=== PATIENT | male | born 1975 | race Two or more races ===

== ENCOUNTER 2025-06-18 18:03 | Emergency (ER) | payer MEDICAID ==
[~2025-06-18] VITALS: Ht 185.4 cm; Wt 98.3 kg
--- NOTE | 2025-06-18 18:12 | ELECTROCARDIOGRAPH REPORT ---
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 Fermin Cruz Measurements Intervals [place] Rate: 72 P: 60 TX: 153 QRS: 35 QRSD: 87 T: 47 QT: 400 QTc: 438 Interpretive Statements Sinus rhythm Ventricular trigeminy Low voltage, precordial leads Electronically Signed On 06-18-2025 18:29:[address] Fermin Cruz Please click the below link to view image of tracing.
[2025-06-18 18:30] LABS: MEAN PLATELET VOLUME 8.7 FL (7.4-10.4); RED CELL DISTRIBUTION WIDTH 13.6 % (11.5-14.5)
[2025-06-18 18:52] LABS: CREATININE 1.28 MG/DL (0.60-1.10); PRO BRAIN NATRIURETIC PEPTIDE < 30 PG/ML (0-125); TOTAL CARBON DIOXIDE 26.7 MMOL/L (24-32); eCRCL 78 ML/MIN; eGFR 59 ML/MIN
--- NOTE | 2025-06-18 18:56 | RADIOLOGY REPORT ---
CHEST RADIOGRAPH REASON FOR EXAM: Chest pain COMPARISON: None TECHNIQUE: One view of the chest is provided FINDINGS: The cardiomediastinal silhouette is within normal limits for technique. There is no focal airspace disease. There is no significant pleural effusion. No acute bony abnormality is identified. IMPRESSION: No radiographic evidence of acute cardiopulmonary process.
--- NOTE | 2025-06-18 19:13 | Physician Documentation ---
History of Present Illness ~ Chief Complaint: Palpitations Stated Complaint: HEART PALPITATIONS/SOB Time Seen by MD: 18:47 Primary Medical Doctor: Tash Tyler Mode of Arrival: POV HPI 49-year-old male since to the ED with a complaint of recurrent palpitations. States he does not have any cardiac history. He adds that when he has palpitations he does not have a accompanying shortness a breath or chest pain states that when he exercises he does not notice having any palpitations. Does report high levels of stress high levels of caffeine daily but does exercise regularly. Denies any alcohol use that is excessive Day of Onset: Jun 18, 2025 Medication Reconciliation Allergies: Uncoded Allergies: SHELL FISH (Allergy, Unknown, 06/18/25) Review of Systems All Other Systems at this time: Reviewed and Negative ROS As stated above in the HPI, otherwise all systems are reviewed and negative. Physical Exam Vital Signs: Temperature: 97.1, Source: Temporal, Heart Rate: 66, Respiratory Rate: 13, BP: 146/72, Pulse Oximetry: 99, Weight: 98.300 Oxygen Flow Rate: 0 Physical Exam General: Alert, no apparent distress. Respiratory: Lungs clear, no respiratory distress. Cardiovascular: Regular rate and rhythm, no murmurs. Gastrointestinal: Soft, nontender, nondistended. Bowels sounds present. Neurologic: Oriented x4. Psychiatric: Normal mood and affect. Skin: Normal color, warm and dry. No edema, no ecchymosis. Progress Results/Orders Results/Orders Vital Signs 06/18/25 06/18/25 18:06 18:37 Temp 97.1 Pulse 66 Resp 18 13 B/P (MAP) 146/72 Pulse Ox 99 O2 Flow Rate 0 Laboratory Tests Test 06/18/25 18:22 White Blood Count 9.2 Red Blood Count 5.31 Hemoglobin 16.2 Hematocrit 46.4 Mean Corpuscular Volume 87.4 Mean Corpuscular Hemoglobin 30.5 Mean Corpuscular Hemoglobin Concent 34.9 Red Cell Distribution Width 13.6 Platelet Count 210 Mean Platelet Volume 8.7 Neutrophils (%) (Auto) 47.9 Lymphocytes (%) (Auto) 40.3 Monocytes (%) (Auto) 8.9 Eosinophils (%) (Auto) 2.4 Basophils (%) (Auto) 0.5 Neutrophils # (Auto) 4.4 Lymphocytes # (Auto) 3.7 Monocytes # (Auto) 0.8 Eosinophils # (Auto) 0.2 Basophils # (Auto) 0.0 CBC Comment Sodium Level 140 Potassium Level 3.9 Chloride Level 106 Carbon Dioxide Level 26.7 Anion Gap 7 L Blood Urea Nitrogen 22 H Creatinine 1.28 H Estimated GFR/1.73 m2 59 BUN/Creatinine Ratio 17.2 Glucose Level 135 H Calcium Level 8.7 Troponin I High Sensitivity 5 Pro-B-Type Natriuretic Peptide < 30 Albumin 4.0 Chemistry Comments Medical Decision Making Additional information obtaine: old records Findings The patient presents with a all the clinical into the dictations for benign PV Cs. I explained to him that reducing caffeine intake and improving his sleep and trying to reduce his stress level should help reduce the occurrence of PVCs however he can follow up with the primary care to obtain a referral to see Cardiology for potential evaluation and likely Holter monitor placement Patient's x-ray was unremarkable as were his laboratories. Per my interpretat ion his EKG was notable for multiple PVCs which were not consecutive. I do not see any reason to pursue further evaluation or ongoing troponins as he does not present currently symptomatic Differential Dx:Considerations: Include: angina / NC, atrial dysrhythmia, atrial fibrillation, atrial flutter, MAT, PACs, PSVT, sinus tachycardia, WPW, 1st degree AV block, 2nd degree AVB-type 1, 2nd degree AVB-type 2, 3rd degree AV block, PVCs, torsades de pointes, ventricular fibrillation, ventricular tachycardia, other Differential Dx:Considerations: Include anxiety/panic attack, Include digoxin toxicity, Include electrolyte disorder, Include heart failure, Include hyperthyroidism, Include hyperventilation, Include hypoxia, Include pacemaker malfunction, Include pulmonary embolus, Include renal failure, Include other Departure Disposition: 01 HOME / SELF CARE / HOMELESS Impression: Primary Impression: Palpitations Condition: Stable Discharge Instructions: Palpitations, [id number] Referrals: NO PRIMARY CARE PROVIDER (PCP) Signature Scribe Signature: p Attestation: Scribed for Gal Dumas Congressional Assistant by Gal Cedeno NP . 06/18/25 19:13 GAL DUMAS NP Jun 18, 2025 19:13
[2025-06-18 19:27] VITALS: BP 125/88; PULSE 59; RESP 14; TEMP 97.1; O2SAT 99
== END 2025-06-18 19:31 | disposition home or self-care (01) ==
LOC: ER 18:04
DX: R00.2 Palpitations (principal)
CPT/HCPCS: 36415; 71045; 80048; 83880; 84484; 85025; 93005; 99285